=== PATIENT | female | born 1975 | race Caucasian/White ===

== ENCOUNTER → 2021-05-03 | Outpatient (CLI) | payer OTHER ==
[2021-05-03 08:30] LABS: HEMOGLOBIN 16.4 gm/dl (12.3-15.3); RED BLOOD COUNT 5.09 M/UL (4.00-5.10); WHITE BLOOD COUNT 13.8 K/UL (4.5-11.0)
[2021-05-03 09:18] LABS: BUN/CREATININE RATIO 15 (0-10)
[2021-05-04 10:03] LABS: HBSAG SCREEN Negative (Negative); HEP A AB, IGM Negative (Negative); HEP B CORE AB, IGM Negative (Negative); HEP C VIRUS AB <0.1 (0.0-0.9)
== END ==
LOC: US 07:45
PROVIDERS: Family Medicine
DX: R73.9 Hyperglycemia, unspecified (principal); D72.829 Elevated white blood cell count, unspecified; K76.0 Fatty (change of) liver, not elsewhere classified
CPT/HCPCS: 36415; 76700; 80048; 80074; 80076; 83036; 85027

== ENCOUNTER → 2021-10-22 | Outpatient (CLI) | payer OTHER | LOC: RAD 17:41 | DX: M25.571 Pain in right ankle and joints of right foot (principal); M25.471 Effusion, right ankle; M79.671 Pain in right foot | CPT/HCPCS: 73610; 73630 ==

== ENCOUNTER → 2021-12-03 | Outpatient (CLI) | payer BC, OTHER | LOC: KOH-I 10:16 | DX: M25.571 Pain in right ankle and joints of right foot (principal); M79.89 Other specified soft tissue disorders | CPT/HCPCS: 73610; 73630 ==

== ENCOUNTER 2022-02-17 12:43 | Emergency (ER) | payer OTHER ==
[2022-02-17 14:31] LABS: BUN/CREATININE RATIO 20 (0-10)
[2022-02-17 14:37] LABS: HEMOGLOBIN 16.1 gm/dl (12.3-15.3); RED BLOOD COUNT 5.04 M/UL (4.00-5.10); WHITE BLOOD COUNT 15.8 K/UL (4.5-11.0)
[2022-02-17] MEDS ORDERED: OMNICEF 300 MG300 MG PO (21:21)
== END 2022-02-17 21:32 | disposition home or self-care (01) ==
LOC: ER1 12:43
PROVIDERS: Nurse Practitioner
DX: N39.0 Urinary tract infection, site not specified (principal); E87.6 Hypokalemia; D72.829 Elevated white blood cell count, unspecified; Z20.822 Contact with and (suspected) exposure to COVID-19; E11.9 Type 2 diabetes mellitus without complications; Z91.040 Latex allergy status; Z86.73 Personal history of transient ischemic attack (TIA), and cerebral infarction without residual deficits; Z87.891 Personal history of nicotine dependence
CPT/HCPCS: 0240U; 70450; 70496; 70498; 71045; 80053; 81001; 82550; 82553; 82962; 83605; 83735; 84100; 84439; 84443; 84484; 85025; 87040; 87077; 87086; 87186; 93005; 96374; 99284; J0696; Q9967